=== PATIENT | male | born 1940 | race Hispanic/Latino ===

== ENCOUNTER 2017-08-01 12:12 | Observation (INO) | payer MEDICARE, OTHER ==
[2017-08-01] MEDS ORDERED: Sodium Chloride 0.9% 1,000 ML IV STA (12:31)
--- NOTE | 2017-08-01 12:43 | ED PDOC ---
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 Pt was sitting in chair, felt lightheaded and passed out X 45 seconds, no seizure- like activity, no incontinence. Pt slowly returned to baseline mental status. Denies CP, SOB, palpitations, paresthesias, weakness, visual changes, CROFT. Denies similar sxs in past. Pt states he had 4 drinks (hard liquor) last night. Past Medical History Reviewed: Nursing Documentation, Vital Signs Vital Signs: Last Vital Signs Temp 98.6 F 08/01/17 12:14 Pulse 106 H 08/01/17 12:14 Resp 18 08/01/17 12:14 BP 150/97 H 08/01/17 12:14 Pulse Ox 96 08/01/17 12:14 - Medical History PMH: Atrial Fibrillation, GERD - Surgical History Surgical History: Appendectomy, Cholecystectomy - Family History Family History: States: Unknown Family Hx - Living Arrangements Living Arrangements: With Family - Social History Current smoker - smoking cessation education provided: Yes Alcohol: Social - Home Medications Home Medications: Ambulatory Orders Medication Instructions Recorded Pantoprazole Sodium [Protonix] 20 mg PO DAILY 08/01/17 - Allergies Allergies/Adverse Reactions: Allergies Allergy/AdvReac Type Severity Reaction Status Date / Time Penicillins Allergy RASH Verified 08/01/17 12:24 Review of Systems Constitutional: Negative for: Fever, Chills Eyes: Negative for: Vision Change Cardiovascular: Negative for: Chest Pain, Palpitations Respiratory: Negative for: Cough, Shortness of Breath Gastrointestinal: Negative for: Nausea, Vomiting, Abdominal Pain, Diarrhea Musculoskeletal: Negative for: Back Pain Skin: Negative for: Rash, Lesions Neurological: Positive for: Dizziness (Lightheadedness). Negative for: Weakness , Numbness, Incoordination, Confusion, Seizures, Altered Mental Status, Headache Physical Exam - Reviewed Nursing Documentation Reviewed: Yes Vital Signs Reviewed: Yes - Physical Exam Appears: Positive for: Well, No Acute Distress Head Exam: Positive for: ATRAUMATIC, NORMAL INSPECTION Skin: Positive for: Normal Color, Warm, Dry Eye Exam: Positive for: Normal appearance, EOMI, PERRL Neck: Positive for: Normal Cardiovascular/Chest: Positive for: Irregularly Irregular Respiratory: Positive for: Normal Breath Sounds. Negative for: Rales, Rhonchi, Wheezing Gastrointestinal/Abdominal: Positive for: Normal Exam Back: Positive for: Normal Inspection Extremity: Positive for: Normal ROM. Negative for: Calf Tenderness, Swelling Neurologic/Psych: Positive for: Alert, advertising sales assistant II-XII, Oriented, Cerebellar Tests ( WNL). Negative for: Motor/Sensory Deficits, Aphasia, Facial Droop - Laboratory Results Result Diagrams: 08/01/17 13:03 08/01/17 13:03 - ECG O2 Sat by Pulse Oximetry: 96 Medical Decision Making Medical Decision Makin yo male with syncope. - labs - EKG - CXR - CT head - IVF Time: 13:45 CT Head Without Contrast FINDINGS: HEMORRHAGE: No acute parenchymal, subarachnoid or extra-axial hemorrhage. BRAIN: Mild diffuse/confluent chronic white matter ischemic changes seen extending peripherally into the deep white matter both cerebral hemispheres. Mild generalized volume loss. Vascular calcifications both carotid siphons and vertebral arteries. VENTRICLES: No obstructive hydrocephalus. CALVARIUM: No acute calvarial fractures. PARANASAL SINUSES: Mild to moderate the mucosal thickening within the ethmoid air complex extending superiorly into the inferior aspect frontal sinus. Minimal mucosal thickening within the sphenoid and maxillary sinuses. MASTOID AIR CELLS: Unremarkable as visualized. No inflammatory changes. OTHER FINDINGS: Orbits and contents appear grossly unremarkable. IMPRESSION: No acute intracranial hemorrhage. Mild chronic white matter ischemic changes. Mild generalized volume loss. Variable mucoperiosteal inflammatory changes within all the paranasal sinuses. Accession No. : [id number] Patient Name / ID : OREN Garcia [id number] Exam Date : 08/01/2017 14:47:50 ( Approved ) Study Comment : Sex / Age : M / 76Y Creator : Jenaro Naik MD Dictator : Jenaro Naik MD Chief Safety Officer : Manufacturing Tech : Jenaro Naik MD Approver2 : Report Date : 08/01/2017 15:25:50 My Comment : PROCEDURE: CT Chest with contrast (Pulmonary Angiogram) HISTORY: Syncope COMPARISON: None available. TECHNIQUE: Axial computed tomography images were obtained of the chest in the pulmonary arterial phase of enhancement. Coronal and sagittal reformatted images were created and reviewed. Intravenous contrast dose: 99 mL Visipaque 320 Radiation dose: Total exam DLP = 496 mGy-cm. This CT exam was performed using one or more of the following dose reduction techniques: Automated exposure control, adjustment of the mA and/or kV according to patient size, and/or use of iterative reconstruction technique. FINDINGS: PULMONARY ARTERIES: Unremarkable. No pulmonary embolism. AORTA: No acute findings. No thoracic aortic aneurysm. LUNGS: Diffuse centrilobular emphysema. No nodule, mass or pulmonary consolidation. PLEURAL SPACES: Unremarkable. No effusion or pneumothorax. HEART: Unremarkable. No cardiomegaly. No significant pericardial effusion. LYMPH NODES: Multiple prominent mediastinal and bilateral hilar lymph nodes that do not meet CT criteria for lymphadenopathy. BONES, CHEST WALL: Degenerative changes. No fracture or destructive lesion OTHER FINDINGS: Small hiatal hernia. Prior cholecystectomy. IMPRESSION: Unremarkable CT pulmonary angiogram. No pulmonary embolus. Multiple nonspecific prominent mediastinal and bilateral hilar lymph nodes that do not meet CT criteria for lymphadenopathy. Additional findings as above. Pt influenza +, symptoms started [address] in obs [facility] for syncope , influenza. 16:00 Pt admitted to Pharmacist that he has been noncompliant with Xarelto since this past summer. Disposition - Clinical Impression Clinical Impression: Syncope, Influenza - Patient ED Disposition Is Patient to be Admitted: Yes - Disposition Disposition Time: 15:49 Condition: STABLE Forms: [employer] (Albanian) - Pt Status Changed To: Hospital Disposition Of: Observation - POA Present On Arrival: None
[2017-08-01 13:11] LABS: BASO % 0.5 % (0.0-2.0); HEMOGLOBIN 15.7 g/dL (12.0-18.0); LYMPH # 1.1 K/uL (1.0-4.3); LYMPH % 22.2 % (20.0-40.0); MEAN CELL VOLUME 93.4 fl (80.0-94.0); MEAN CORPUSCULAR HEMOGLOBIN 31.4 pg (27.0-31.0); MEAN CORPUSCULAR HGB CONC 33.6 g/dL (33.0-37.0); MEAN PLATELET VOLUME 8.7 fl (7.2-11.7); MONO % 19.8 % (0.0-10.0); NEUT # 2.9 K/uL (1.8-7.0); NEUT % 57.5 % (50.0-75.0); NRBC % 0.1 % (0.0-0.0); RBC 5.01 Mil/uL (4.40-5.90); RED CELL DISTRIBUTION WIDTH 13.3 % (11.5-14.5)
[2017-08-01 13:21] LABS: INR 1.2 (0.9-1.2); PARTIAL THROMBOPLASTIN TIME 34.3 Seconds (25.6-37.1); PROTHROMBIN TIME 13.3 Seconds (9.8-13.1)
[2017-08-01 13:27] LABS: ALB/GLOB RATIO 1.2 (1.0-2.1); ALBUMIN 4.3 g/dL (3.5-5.0); CALCIUM 8.6 mg/dL (8.4-10.2); GFR AFRICAN-AMERICAN > 60; GFR NON-AFRICAN AMERICAN > 60
[2017-08-01 13:36] LABS: ALT/SGPT 60 U/L (21-72); AST/SGOT 58 U/L (17-59); BLOOD UREA NITROGEN 19 mg/dl (9-20)
[2017-08-01] MEDS ORDERED: Iodixanol 320 MG/ML 100 ML BOTTLE IV ONE (13:45)
[2017-08-01] MEDS ORDERED: Sodium Chloride 0.9% 50 ML IV ONE (13:45)
--- NOTE | 2017-08-01 13:47 | CT ---
PROCEDURE: CT HEAD WITHOUT CONTRAST. HISTORY: Syncope COMPARISON: No prior study available for comparison TECHNIQUE: Axial computed tomography images were obtained through the head/brain without intravenous contrast. Radiation dose: Total exam DLP = 891.07 mGy-cm. This CT exam was performed using one or more of the following dose reduction techniques: Automated exposure control, adjustment of the mA and/or kV according to patient size, and/or use of iterative reconstruction technique. FINDINGS: HEMORRHAGE: No acute parenchymal, subarachnoid or extra-axial hemorrhage. BRAIN: Mild diffuse/confluent chronic white matter ischemic changes seen extending peripherally into the deep white matter both cerebral hemispheres. Mild generalized volume loss. Vascular calcifications both carotid siphons and vertebral arteries. VENTRICLES: No obstructive hydrocephalus. CALVARIUM: No acute calvarial fractures. PARANASAL SINUSES: Mild to moderate the mucosal thickening within the ethmoid air complex extending superiorly into the inferior aspect frontal sinus. Minimal mucosal thickening within the sphenoid and maxillary sinuses. MASTOID AIR CELLS: Unremarkable as visualized. No inflammatory changes. OTHER FINDINGS: Orbits and contents appear grossly unremarkable. IMPRESSION: No acute intracranial hemorrhage. Mild chronic white matter ischemic changes. Mild generalized volume loss. Variable mucoperiosteal inflammatory changes within all the paranasal sinuses. .
[2017-08-01 14:31] LABS: URINE BACTERIA RARE (<OCC); URINE BILIRUBIN NEGATIVE (NEGATIVE); URINE BLOOD NEGATIVE (NEGATIVE); URINE CLARITY SLIGHTY-CLOUDY (Clear); URINE COLOR YELLOW (YELLOW); URINE GLUCOSE (UA) NEG (Normal); URINE LEUKOCYTE ESTERASE NEG Leu/uL (Negative); URINE NITRATE NEGATIVE (NEGATIVE); URINE PROTEIN NEGATIVE (NEGATIVE); URINE UROBILINOGEN 0.2-1.0 mg/dL (0.2-1.0)
--- NOTE | 2017-08-01 15:17 | RAD ---
HISTORY: Syncope COMPARISON: Chest radiograph dated 12/26/2009. FINDINGS: LUNGS: No active pulmonary disease. PLEURA: Stable elevation of the right hemidiaphragm. No significant pleural effusion identified, no pneumothorax apparent. CARDIOVASCULAR: Atherosclerotic aortic calcifications. Cardiomediastinal silhouette stably enlarged. OSSEOUS STRUCTURES: Unchanged. VISUALIZED UPPER ABDOMEN: Normal. OTHER FINDINGS: None. IMPRESSION: No active disease.
--- NOTE | 2017-08-01 15:27 | CT ---
PROCEDURE: CT Chest with contrast (Pulmonary Angiogram) HISTORY: Syncope COMPARISON: None available. TECHNIQUE: Axial computed tomography images were obtained of the chest in the pulmonary arterial phase of enhancement. Coronal and sagittal reformatted images were created and reviewed. Intravenous contrast dose: 99 mL Visipaque 320 Radiation dose: Total exam DLP = 496 mGy-cm. This CT exam was performed using one or more of the following dose reduction techniques: Automated exposure control, adjustment of the mA and/or kV according to patient size, and/or use of iterative reconstruction technique. FINDINGS: PULMONARY ARTERIES: Unremarkable. No pulmonary embolism. AORTA: No acute findings. No thoracic aortic aneurysm. LUNGS: Diffuse centrilobular emphysema. No nodule, mass or pulmonary consolidation. PLEURAL SPACES: Unremarkable. No effusion or pneumothorax. HEART: Unremarkable. No cardiomegaly. No significant pericardial effusion. LYMPH NODES: Multiple prominent mediastinal and bilateral hilar lymph nodes that do not meet CT criteria for lymphadenopathy. BONES, CHEST WALL: Degenerative changes. No fracture or destructive lesion OTHER FINDINGS: Small hiatal hernia. Prior cholecystectomy. IMPRESSION: Unremarkable CT pulmonary angiogram. No pulmonary embolus. Multiple nonspecific prominent mediastinal and bilateral hilar lymph nodes that do not meet CT criteria for lymphadenopathy. Additional findings as above.
[2017-08-01] MEDS: Sodium Chloride 0.9% 1,000 ML IV SCH (21:39)
[2017-08-02] MEDS: Sodium Chloride 0.9% 1,000 ML IV SCH (03:00)
[2017-08-02 07:29] LABS: BASO % 0.5 % (0.0-2.0); EOS % 0.1 % (0.0-4.0); HEMOGLOBIN 14.7 g/dL (12.0-18.0); LYMPH # 0.8 K/uL (1.0-4.3); LYMPH % 22.4 % (20.0-40.0); MEAN CELL VOLUME 93.8 fl (80.0-94.0); MEAN CORPUSCULAR HEMOGLOBIN 31.7 pg (27.0-31.0); MEAN CORPUSCULAR HGB CONC 33.8 g/dL (33.0-37.0); MEAN PLATELET VOLUME 8.3 fl (7.2-11.7); MONO # 0.7 K/uL (0.0-0.8); MONO % 20.1 % (0.0-10.0); NEUT % 56.9 % (50.0-75.0); NRBC % 0.5 % (0.0-0.0); PLATELET COUNT 98 K/uL (130-400); RBC 4.63 Mil/uL (4.40-5.90); WHITE BLOOD COUNT 3.5 K/uL (4.8-10.8)
[2017-08-02 07:45] LABS: ALB/GLOB RATIO 1.1 (1.0-2.1); ALBUMIN 3.5 g/dL (3.5-5.0); ALT/SGPT 48 U/L (21-72); AST/SGOT 39 U/L (17-59); BLOOD UREA NITROGEN 14 mg/dl (9-20); CALCIUM 8.1 mg/dL (8.4-10.2); GFR AFRICAN-AMERICAN > 60; GFR NON-AFRICAN AMERICAN > 60
[2017-08-02] MEDS ORDERED: Pneumococcal 23-Valent Vaccine IM ONE (09:00)
[2017-08-02] MEDS ORDERED: Influenza Vaccine 18yr & older 0.5 ML/45 MCG SYR IM ONE (09:00)
[2017-08-02] MEDS ORDERED: Pantoprazole 20 mg EC Tab PO SCH (09:00)
--- NOTE | 2017-08-02 09:36 | CP.PCM.HP ---
History of Present Illness - History of Present Illness History of Present Illness: pt admitted for flu b and near syncope. pt states had a couple of drinks the night before coming to the hospital. was on couch and felt lightheaded and "everythign was black for 30 seconds". no sz activity noted. pt did not fall to floor. pt has h/o afib not compliant on xarelto. afib on monitor. no complaints a tpresent. no f/c, n/v/d. 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 pt also w/ r hand tremor. states has been present for a long time Present on Admission - Present on Admission Any Indicators Present on Admission: No Review of Systems - Cardiovascular Cardiovascular: As Per HPI, Irregular Heart Rhythm - Neurological Neurological: As Per HPI, Syncope, Tremor Past Patient History - Past Medical History & Family History Past Medical History?: Yes - Past Social History Smoking Status: use cigars - CARDIAC Hx Cardiac Disorders: Yes Hx Atrial Fibrillation: Yes - PULMONARY Hx Respiratory Disorders: No - NEUROLOGICAL Hx Neurological Disorder: No - HEENT Hx HEENT Problems: No - RENAL Hx Chronic Kidney Disease: No - ENDOCRINE/METABOLIC Hx Endocrine Disorders: No - HEMATOLOGICAL/ONCOLOGICAL Hx Blood Disorders: No - INTEGUMENTARY Hx Dermatological Problems: No - MUSCULOSKELETAL/RHEUMATOLOGICAL Hx Musculoskeletal Disorders: No Hx Falls: No - GASTROINTESTINAL Hx Gastrointestinal Disorders: Yes Hx Gastroesophageal Reflux: Yes - GENITOURINARY/GYNECOLOGICAL Hx Genitourinary Disorders: No - PSYCHIATRIC Hx Psychophysiologic Disorder: No Hx Substance Use: No - SURGICAL HISTORY Hx Surgeries: Yes Hx Appendectomy: Yes Hx Cholecystectomy: Yes - ANESTHESIA Hx Anesthesia: Yes Hx Anesthesia Reactions: No Meds Allergies/Adverse Reactions: Allergies Allergy/AdvReac Type Severity Reaction Status Date / Time Penicillins Allergy RASH Verified 08/01/17 12:24 Physical Exam - Constitutional Appears: Well, Non-toxic, No Acute Distress - Head Exam Head Exam: ATRAUMATIC, NORMAL INSPECTION, NORMOCEPHALIC - Eye Exam Eye Exam: EOMI, Normal appearance, PERRL Pupil Exam: NORMAL ACCOMODATION, PERRL - ENT Exam ENT Exam: Mucous Membranes Moist, Normal Exam - Neck Exam Neck exam: Positive for: Normal Inspection - Respiratory Exam Respiratory Exam: Clear to Auscultation Bilateral, NORMAL BREATHING PATTERN - Cardiovascular Exam Cardiovascular Exam: Irregular Rhythm, +S1, +S2 - GI/Abdominal Exam GI & Abdominal Exam: Normal Bowel Sounds, Soft. absent: Tenderness - Extremities Exam Extremities exam: Positive for: full ROM, normal capillary refill, normal inspection, pedal pulses present - Back Exam Back exam: NORMAL INSPECTION - Neurological Exam Neurological exam: Alert, CN II-XII Intact, Normal Gait, Oriented x3, Reflexes Normal - Psychiatric Exam Psychiatric exam: Normal Affect, Normal Mood - Skin Skin Exam: Dry, Intact, Normal Color, Warm Results - Vital Signs Recent Vital Signs: Last Vital Signs Temp 98.6 F 08/02/17 08:21 Pulse 79 08/02/17 08:21 Resp 18 08/02/17 08:21 BP 121/77 08/02/17 08:21 Pulse Ox 96 08/02/17 08:21 - Labs Result Diagrams: 08/02/17 06:00 08/02/17 06:00 Labs: Laboratory Results - last 24 hr 08/01/17 08/01/17 08/01/17 13:03 13:03 13:03 WBC 5.0 D RBC 5.01 Hgb 15.7 Hct 46.8 MCV 93.4 MCH 31.4 H MCHC 33.6 RDW 13.3 Plt Count 120 L D MPV 8.7 Neut % (Auto) 57.5 Lymph % (Auto) 22.2 [place] % (Auto) 19.8 H Eos % (Auto) 0.0 Baso % (Auto) 0.5 Neut # 2.9 Lymph # 1.1 [place] # 1.0 H Eos # 0.0 Baso # 0.0 PT 13.3 H INR 1.2 APTT 34.3 D-Dimer, Quantitative 234 H Sodium 133 Potassium 4.6 Chloride 96 L Carbon Dioxide 25 Anion Gap 17 BUN 19 Creatinine 0.9 Est GFR ( Amer) > 60 Est GFR (Non-Af Amer) > 60 POC Glucose (mg/dL) Random Glucose 106 Calcium 8.6 Total Bilirubin 1.6 H AST 58 ALT 60 Alkaline Phosphatase 49 Troponin I 0.0180 Total Protein 7.9 Albumin 4.3 Globulin 3.6 Albumin/Globulin Ratio 1.2 Urine Color Urine Clarity Urine pH Ur Specific [place] Urine Protein Urine Glucose (UA) Urine Ketones Urine Blood Urine Nitrate Urine Bilirubin Urine Urobilinogen Ur Leukocyte Esterase Urine RBC (Auto) Urine Microscopic WBC Urine Bacteria Alcohol, Quantitative < 10 Influenza Typ A,B (EIA) 08/01/17 08/01/17 08/01/17 13:10 13:20 14:00 WBC RBC Hgb Hct MCV MCH MCHC RDW Plt Count MPV Neut % (Auto) Lymph % (Auto) [place] % (Auto) Eos % (Auto) Baso % (Auto) Neut # Lymph # [place] # Eos # Baso # PT INR APTT D-Dimer, Quantitative Sodium Potassium Chloride Carbon Dioxide Anion Gap BUN Creatinine Est GFR ( Amer) Est GFR (Non-Af Amer) POC Glucose (mg/dL) 99 Random Glucose Calcium Total Bilirubin AST ALT Alkaline Phosphatase Troponin I Total Protein Albumin Globulin Albumin/Globulin Ratio Urine Color Yellow Urine Clarity Slighty-cloudy Urine pH 5.0 Ur Specific [place] 1.024 Urine Protein Negative Urine Glucose (UA) Neg Urine Ketones Negative Urine Blood Negative Urine Nitrate Negative Urine Bilirubin Negative Urine Urobilinogen 0.2-1.0 Ur Leukocyte Esterase Neg Urine RBC (Auto) 3 Urine Microscopic WBC 1 Urine Bacteria Rare Alcohol, Quantitative Influenza Typ A,B (EIA) Pos for influenza b H 08/02/17 08/02/17 06:00 06:00 WBC 3.5 L RBC 4.63 Hgb 14.7 Hct 43.4 MCV 93.8 MCH 31.7 H MCHC 33.8 RDW 13.0 Plt Count 98 L D MPV 8.3 Neut % (Auto) 56.9 Lymph % (Auto) 22.4 [place] % (Auto) 20.1 H Eos % (Auto) 0.1 Baso % (Auto) 0.5 Neut # 2.0 Lymph # 0.8 L [place] # 0.7 Eos # 0.0 Baso # 0.0 PT INR APTT D-Dimer, Quantitative Sodium 136 Potassium 4.1 Chloride 97 L Carbon Dioxide 28 Anion Gap 15 BUN 14 Creatinine 0.8 Est GFR ( Amer) > 60 Est GFR (Non-Af Amer) > 60 POC Glucose (mg/dL) Random Glucose 117 H Calcium 8.1 L Total Bilirubin 1.3 AST 39 ALT 48 Alkaline Phosphatase 46 Troponin I Total Protein 6.7 Albumin 3.5 Globulin 3.2 Albumin/Globulin Ratio 1.1 Urine Color Urine Clarity Urine pH Ur Specific [place] Urine Protein Urine Glucose (UA) Urine Ketones Urine Blood Urine Nitrate Urine Bilirubin Urine Urobilinogen Ur Leukocyte Esterase Urine RBC (Auto) Urine Microscopic WBC Urine Bacteria Alcohol, Quantitative Influenza Typ A,B (EIA) Assessment & Plan (1) DVT prophylaxis Assessment and Plan: scd and ae hose ambulation lovenox if admitted over 24h Status: Acute (2) Influenza Assessment and Plan: out of window for tamiflu ivf po as [place] fever control symptom support Status: Acute (3) Syncope Assessment and Plan: likely r/t dehydration from flu/etoh cardio/neuro and pt is noncompliant w/ xarelto for afib. per dr matias if pt is dc today can see him mon in office, if in hospital tomorrow will see as inpt. pt aaox4 at present Status: Acute (4) Tremor Assessment and Plan: neuro. pt has h/o ofsame Status: Acute (5) Afib Assessment and Plan: asa for now, resume xarelto as per cardio Status: Acute Decision To Admit - Pt Status Changed To: Hospital Disposition Of: Observation - . Bed Request Type: Telemetry Admitting Physician: Dennis Prado
[2017-08-02 12:58] LABS: BANDS 2 % (0-2); LYMPHOCYTE 21 % (20-50); MONOCYTE 14 % (0-10); NEUTROPHIL 61 % (42-75); REACTIVE LYMPHOCYTES 2 % (0-0); TOTAL CELLS COUNTED 100
[2017-08-02 12:59] LABS: PLATELET ESTIMATE DECREASED (NORMAL)
--- NOTE | 2017-08-02 13:02 | CON ---
DATE: 08/02/2017 NEUROLOGY CONSULTATION CHIEF COMPLAINT: Syncope. HISTORY OF PRESENT ILLNESS: This is a 76-year-old man with past medical history of atrial fibrillation, was on Xarelto, has been off of it for the past few months; GERD; history of appendectomy and cholecystectomy, who presented with a syncopal episode. The patient was sitting in a chair, felt lightheaded and passed out for 45 seconds. No seizure-like activity. No bowel or bladder incontinence. He said that he has been having flu-like symptoms the whole week and had a very poor sleep and went out the night before and had a few hard liquor drinks and felt dehydrated and lightheaded in the morning, then when he went to in his chair, he felt lightheaded and passed out. Currently, no seizure-like activities. His CAT scan of the head showed no acute intracranial abnormality. Neuro exam is nonfocal. He is doing well, moving all extremities equally. PAST MEDICAL HISTORY: AFib, GERD, appendectomy, cholecystectomy. FAMILY HISTORY: Noncontributory. SOCIAL HISTORY: No illicit drug use, smoking or EtOH abuse at this time. REVIEW OF SYSTEMS: A 14-point review of systems negative except in the HPI. ALLERGIES: ALLERGIC TO PENICILLIN. MEDICATIONS: Reviewed by nurse reconciliation sheet. PHYSICAL EXAMINATION: VITAL SIGNS: Temperature 98.6, pulse rate of 79, blood pressure 121/77, respiratory rate of 18, oxygen saturation 96% by room air. GENERAL: The patient is sitting up in bed, in no acute distress. HEENT: Atraumatic, normocephalic. PERRLA. Extraocular muscles intact. NECK: Supple. No JVD, no adenopathy noted. LUNGS: Clear to auscultation. No adventitious sounds. HEART: S1, S2. Normal rate and rhythm. No murmurs, rubs or gallops. ABDOMEN: Soft, nontender and nondistended. Bowel sounds are present. EXTREMITIES: No clubbing. No cyanosis. Peripheral pulses 2+ felt bilaterally. NEUROLOGIC: The patient is alert and oriented to person, place, month and year. Speech is fluent without any errors. Cranial nerves II through XII intact. Motor exam: Moves all extremities equally. Toes are downgoing bilaterally. Sensory: Light touch, pinprick, proprioception and vibration are intact. DTRs are 2+ throughout. Coordination: [id number] intact. Gait is deferred for now. LABORATORY DATA: Sodium 136, potassium 4.1, chloride 97, carbon dioxide of 15, BUN of 14, creatinine 0.8, random glucose 117. ASSESSMENT AND PLAN: This is a 76-year-old man with history of atrial fibrillation, was on Xarelto and hypertension, who had a syncopal event. The syncopal event seems most likely a vasovagal component superimposed on influenza, which is flu. At this time, recommend, 1. Adequate hydration throughout the day. 2. Avoid sudden movements.. 3. Needs to be on his anticoagulation like Xarelto or Eliquis for his atrial fibrillation. 4. Carotid Doppler and can be stable for discharge. Once again, thank you for this consultation. Ion Guidry MD
[2017-08-02 15:46] VITALS: RESP 20
--- NOTE | 2017-08-02 17:42 | US ---
PROCEDURE: Duplex ultrasound of the carotid and vertebral arteries. HISTORY: syncope COMPARISON: None available. TECHNIQUE: Grayscale and duplex Doppler evaluation of the cervical carotid and vertebral arteries were performed. The common carotid, carotid bifurcations and cervical ICA and proximal ECA were evaluated. The vertebral arteries were evaluated for gross patency and direction. FINDINGS: RIGHT CAROTID ARTERIES: Maximal right ICA velocity = 68.0 cm/S Maximal right CCA velocity = 77.9 cm/S ICA/CCA Ratio: 0.9 No significant right-sided atherosclerotic plaque changes are identified however there arm mild irregular intimal thickening changes seen within the right carotid bifurcation extending slightly into the proximal margin of the right internal carotid artery LEFT CAROTID ARTERIES: Maximal left ICA velocity = 72.5 cm/S Maximal left CCA velocity equals 73.5 cm/S ICA/CCA Ratio: 1.0 Note made of a relatively small to medium-sized elliptical shaped partially calcified plaque within the proximal left internal carotid artery and a slightly smaller plaque in the left carotid bifurcation. . Mild irregular intimal thickening left common carotid artery VERTEBRAL ARTERIES: Right Vertebral Artery: Patent. Antegrade flow. Left Vertebral Artery: Patent. Antegrade flow. OTHER FINDINGS: None. IMPRESSION: There are atherosclerotic plaque changes seen within the left common carotid artery and left proximal internal carotid artery with no evidence of hemodynamically significant stenosis.
[2017-08-02 19:24] VITALS: BP 110/66; PULSE 77; TEMP 98.7; O2SAT 92
== END 2017-08-02 20:15 | disposition home or self-care (01) ==
LOC: H.ER 12:12 → H.ERHOLD 15:49 → H.TEL 18:19
PROVIDERS: ADMIT Family Medicine; ATTEND Family Medicine
DX: E86.0 Dehydration (principal); J10.1 Influenza due to other identified influenza virus with other respiratory manifestations; R55 Syncope and collapse; I10 Essential (primary) hypertension; I48.91 Unspecified atrial fibrillation; K21.9 Gastro-esophageal reflux disease without esophagitis; F17.200 Nicotine dependence, unspecified, uncomplicated; Z91.19 Patient's noncompliance with other medical treatment and regimen; Z79.01 Long term (current) use of anticoagulants; Z88.0 Allergy status to penicillin
CPT/HCPCS: 36415; 70450; 71045; 71275; 80053; 81003; 82948; 84484; 85025; 85378; 85610; 85730; 87804; 93880; 99285; G0378; G0480; J7040; Q9967

== ENCOUNTER 2018-10-07 08:24 | Inpatient (IN) | payer MEDICARE, OTHER ==
[2018-10-07 08:27] VITALS: BMI 26.6
[2018-10-07] MEDS ORDERED: Sodium Chloride 0.9% 1,000 ML IV STA (09:23)
--- NOTE | 2018-10-07 09:30 | ED PDOC ---
HPI: Abdomen Time Seen by Provider: 10/07/18 09:17 Chief Complaint (Nursing): GI Problem Chief Complaint (Provider): GI Problem History Per: Patient History/Exam Limitations: no limitations Onset/Duration Of Symptoms: Days Current Symptoms Are (Timing): Still Present Associated Symptoms: Nausea, Vomiting, Diarrhea Additional Complaint(s): 77 year old male with a past medical history of atrial fibrillation who is presenting to the ED for evaluation of nausea, vomiting, and diarrhea onset 2 days ago at night. Patient states that he thinks he got food poisoning and reports that there was bright red blood in diarrhea but states that episodes of vomiting were non-bloody. He denies any abdominal pain or fevers and admits that he is on blood thinner and is taking xarelto for Afib. Patient also denies any chest pain or shortness of breath. PMD: Yanick Owen Past Medical History Reviewed: Historical Data, Nursing Documentation, Vital Signs Vital Signs: Last Vital Signs Temp 97.1 F L 10/07/18 08:26 Pulse 110 H 10/07/18 08:26 Resp 16 10/07/18 08:26 BP 121/70 10/07/18 08:26 Pulse Ox 96 10/07/18 08:26 - Medical History PMH: Atrial Fibrillation, GERD, Hiatal Hernia Denies: Chronic Kidney Disease - Surgical History Surgical History: Appendectomy, Cholecystectomy - Family History Family History: States: Unknown Family Hx - Social History Current smoker - smoking cessation education provided: Yes Alcohol: Social Drugs: Denies - Home Medications Home Medications: Ambulatory Orders Medication Instructions Recorded Pantoprazole Sodium [Protonix] 20 mg PO HS 08/01/17 Rivaroxaban [Xarelto] 20 mg PO HS 08/01/17 - Allergies Allergies/Adverse Reactions: Allergies Allergy/AdvReac Type Severity Reaction Status Date / Time Penicillins Allergy RASH Verified 08/01/17 12:24 Review of Systems ROS Statement: Except As Marked, All Systems Reviewed And Found Negative Constitutional: Negative for: Fever Cardiovascular: Negative for: Chest Pain Respiratory: Negative for: Shortness of Breath Gastrointestinal: Positive for: Nausea, Vomiting, Diarrhea. Negative for: Abdominal Pain Physical Exam - Reviewed Nursing Documentation Reviewed: Yes Vital Signs Reviewed: Yes - Physical Exam Appears: Positive for: Non-toxic, No Acute Distress Head Exam: Positive for: ATRAUMATIC, NORMAL INSPECTION, NORMOCEPHALIC Skin: Positive for: Normal Color, Warm, DRY Eye Exam: Positive for: EOMI, Normal appearance, PERRL Neck: Positive for: Normal, Painless ROM Cardiovascular/Chest: Positive for: Regular Rate, Rhythm. Negative for: Murmur Respiratory: Positive for: Normal Breath Sounds. Negative for: Respiratory Distress Gastrointestinal/Abdominal: Positive for: Normal Exam, Soft. Negative for: Tenderness, Mass, Guarding, Rebound Back: Positive for: Normal Inspection. Negative for: L CVA Tenderness, R CVA Tenderness Extremity: Positive for: Normal ROM. Negative for: Deformity, Swelling Neurological/Psych: Positive for: Awake, Alert, Normal Tone, Oriented. Negative for: Motor/Sensory Deficits - Laboratory Results Result Diagrams: 10/07/18 09:05 10/07/18 09:05 - ECG O2 Sat by Pulse Oximetry: 96 (RA) Pulse Ox Interpretation: Normal Medical Decision Making Medical Decision Making: Time: 9:22 Plan: --ABO/RH Type --Blood Type and Screen --CT Abd/Pelvis --EKG --CMP --Lipase --ED Urine Dipstick --CBC --Coags --CXR --IV Fluids --Pepcid 20 mg IVP --Zofran 4 mg IV --Urinalysis Accession No. : [id number] Patient Name / ID : OREN Garcia [id number] Exam Date : 10/07/2018 11:53:33 ( Approved ) Study Comment : Sex / Age : M / 77Y Creator : Jack Donahue MD Dictator : Jack Donahue MD Handyperson : [employer] Room Supervisor : Jack Donahue MD Approver2 : Report Date : 10/07/2018 12:30:13 My Comment : Date of service: 10/07/2018 PROCEDURE: CT Abdomen and Pelvis without intravenous contrast HISTORY: Vomiting, bloody diarrhea COMPARISON: 05/23/2015. CT abdomen and pelvis. TECHNIQUE: Unenhanced. Neither IV nor oral contrast administered Radiation dose: Total exam DLP = 689.79 mGy-cm. This CT exam was performed using one or more of the following dose reduction techniques: Automated exposure control, adjustment of the mA and/or kV according to patient size, and/or use of iterative reconstruction technique. FINDINGS: LOWER THORAX: Right middle lobe infiltrate likely pneumonia. LIVER: Unremarkable. No gross lesion or ductal dilatation. GALLBLADDER AND BILE DUCTS: Status post cholecystectomy. No abnormality is seen in the gallbladder fossa. PANCREAS: Unremarkable. No gross lesion or ductal dilatation. SPLEEN: Unremarkable. ADRENALS: Unremarkable. No mass. KIDNEYS AND URETERS: Unremarkable. No hydronephrosis. No solid mass. Redemonstration of dominant simple cyst left kidney. VASCULATURE: Unremarkable. No aortic aneurysm. Atherosclerotic calcification and mural plaque present. Findings are seen throughout the aorta which is non aneurysmal. Extension into the iliac vessels noted. BOWEL: Diverticulosis without an acute inflammatory component or other associated pathologic process. APPENDIX: The appendix is not visualized. No right lower quadrant/pelvic inflammatory changes. PERITONEUM: Unremarkable. No free fluid. No free air. LYMPH NODES: Unremarkable. No enlarged lymph nodes. BLADDER: Unremarkable. REPRODUCTIVE: Unremarkable. BONES: No acute fracture. OTHER FINDINGS: Right inguinal hernia, a progressive finding compared to the prior study now containing the cecum and adjacent ileum. No evidence of incarceration or mechanical obstruction. IMPRESSION: Progression of right inguinal hernia now containing bowel. No evidence of obstruction or incarceration. Right middle lobe infiltrate likely acute pneumonia. Scribe Attestation: Documented by Poornima Ndiaye, acting as a scribe for Laura Stringer MD. Provider Scribe Attestation: All medical record entries made by the Scribe were at my direction and personally dictated by me. I have reviewed the chart and agree that the record accurately reflects my personal performance of the history, physical exam, [facility] decision making, and the department course for this patient. I have also personally directed, reviewed, and agree with the discharge instructions and disposition. Disposition - Clinical Impression Clinical Impression: LGI bleed, Gastroenteritis, Pneumonia - Patient ED Disposition Is Patient to be Admitted: Yes - Disposition Disposition Time: 12:48 Condition: STABLE - Pt Status Changed To: Hospital Disposition Of: Inpatient - Admit Certification Admit to Inpatient:: After my assessment, the patient will require hospitalization for at least two midnights. This is because of the severity of symptoms shown, intensity of services needed, and/or the medical risk in this patient being treated as an outpatient. - POA Present On Arrival: None
--- NOTE | 2018-10-07 09:51 | RAD ---
Date of service: 10/07/2018 HISTORY: Vomiting/diarrhea COMPARISON: 08/01/2017 TECHNIQUE: 1 view obtained. FINDINGS: LUNGS: Lateral and basal right bronchovascular markings probably top-normal. Concomitant summation of soft tissues is favored. No dense consolidation seen. PLEURA: No significant pleural effusion identified, no pneumothorax apparent. CARDIOVASCULAR: There is presence of aortic atherosclerotic calcification on x-ray. Heart size top normal. No significant appearing pulmonary venous congestion. OSSEOUS STRUCTURES: No significant abnormalities. VISUALIZED UPPER ABDOMEN: Normal. OTHER FINDINGS: None. IMPRESSION: No interval dense consolidation noted. Probable summation of soft tissues at the right lung base. If clinically suspect an infiltrate, consider follow-up chest x-ray PA and lateral when patient can tolerate.
[2018-10-07 10:03] LABS: BASO % 0.2 % (0.0-2.0); HEMOGLOBIN 15.3 g/dL (12.0-18.0); LYMPH # 1.1 K/uL (1.0-4.3); LYMPH % 5.2 % (20.0-40.0); MEAN CORPUSCULAR HEMOGLOBIN 32.2 pg (27.0-31.0); MEAN CORPUSCULAR HGB CONC 33.5 g/dL (33.0-37.0); MEAN PLATELET VOLUME 8.4 fl (7.2-11.7); MONO # 1.5 K/uL (0.0-0.8); MONO % 7.1 % (0.0-10.0); NEUT # 17.9 K/uL (1.8-7.0); NEUT % 87.5 % (50.0-75.0); NRBC % 0.1 % (0.0-0.0); PLATELET COUNT 233 K/uL (130-400); RBC 4.76 Mil/uL (4.40-5.90); RED CELL DISTRIBUTION WIDTH 13.6 % (11.5-14.5); WHITE BLOOD COUNT 20.5 K/uL (4.8-10.8)
[2018-10-07 10:08] LABS: INR 2.3; PROTHROMBIN TIME 26.7 Seconds (9.8-13.1)
[2018-10-07 10:11] LABS: PARTIAL THROMBOPLASTIN TIME 46.1 Seconds (25.6-37.1)
[2018-10-07 10:12] LABS: ALB/GLOB RATIO 1.2 (1.0-2.1); ALBUMIN 4.5 g/dL (3.5-5.0); CALCIUM 9.3 mg/dL (8.4-10.2)
--- NOTE | 2018-10-07 10:50 | CARD ---
APPROVED REPORT Date of service: 10/07/2018 EKG Measurement Heart [id number] <Conclusion> Atrial fibrillation Anteroseptal infarct, age undetermined ST & T wave abnormality, consider inferolateral ischemia Abnormal ECG
--- NOTE | 2018-10-07 12:33 | CT ---
Date of service: 10/07/2018 PROCEDURE: CT Abdomen and Pelvis without intravenous contrast HISTORY: Vomiting, bloody diarrhea COMPARISON: 05/23/2015. CT abdomen and pelvis. TECHNIQUE: Unenhanced. Neither IV nor oral contrast administered Radiation dose: Total exam DLP = 689.79 mGy-cm. This CT exam was performed using one or more of the following dose reduction techniques: Automated exposure control, adjustment of the mA and/or kV according to patient size, and/or use of iterative reconstruction technique. FINDINGS: LOWER THORAX: Right middle lobe infiltrate likely pneumonia. LIVER: Unremarkable. No gross lesion or ductal dilatation. GALLBLADDER AND BILE DUCTS: Status post cholecystectomy. No abnormality is seen in the gallbladder fossa. PANCREAS: Unremarkable. No gross lesion or ductal dilatation. SPLEEN: Unremarkable. ADRENALS: Unremarkable. No mass. KIDNEYS AND URETERS: Unremarkable. No hydronephrosis. No solid mass. Redemonstration of dominant simple cyst left kidney. VASCULATURE: Unremarkable. No aortic aneurysm. Atherosclerotic calcification and mural plaque present. Findings are seen throughout the aorta which is non aneurysmal. Extension into the iliac vessels noted. BOWEL: Diverticulosis without an acute inflammatory component or other associated pathologic process. APPENDIX: The appendix is not visualized. No right lower quadrant/pelvic inflammatory changes. PERITONEUM: Unremarkable. No free fluid. No free air. LYMPH NODES: Unremarkable. No enlarged lymph nodes. BLADDER: Unremarkable. REPRODUCTIVE: Unremarkable. BONES: No acute fracture. OTHER FINDINGS: Right inguinal hernia, a progressive finding compared to the prior study now containing the cecum and adjacent ileum. No evidence of incarceration or mechanical obstruction. IMPRESSION: Progression of right inguinal hernia now containing bowel. No evidence of obstruction or incarceration. Right middle lobe infiltrate likely acute pneumonia.
[2018-10-07] MEDS ORDERED: levoFLOXacin 750 mg in D5W 150 ML BAG IVPB STA (12:46)
[2018-10-07] MEDS ORDERED: levoFLOXacin 750 mg in D5W 750 MG/150 ML BAG IVPB ONE (13:17)
[2018-10-07 13:28] LABS: BANDS 2 % (0-2); GIANT PLATELETS PRESENT; LARGE PLATELETS PRESENT; LYMPHOCYTE 5 % (20-50); MONOCYTE 5 % (0-10); NEUTROPHIL 86 % (42-75); PLATELET ESTIMATE NORMAL (NORMAL); REACTIVE LYMPHOCYTES 2 % (0-0); TOTAL CELLS COUNTED 100
[2018-10-07 13:30] LABS: URINE BACTERIA RARE (<OCC); URINE BILIRUBIN NEGATIVE (NEGATIVE); URINE BLOOD SMALL (NEGATIVE); URINE CLARITY CLEAR (Clear); URINE COLOR YELLOW (YELLOW); URINE GLUCOSE (UA) NEG (NEGATIVE); URINE LEUKOCYTE ESTERASE NEG Leu/uL (Negative); URINE PROTEIN NEGATIVE (NEGATIVE); URINE UROBILINOGEN 0.2-1.0 mg/dL (0.2-1.0)
[2018-10-07 13:53] LABS: VENOUS BLOOD GAS BASE EXCESS -2.3 mmol/L (0.0-2.0); VENOUS BLOOD GAS PCO2 38 mmHg (40-60); VENOUS BLOOD GAS PO2 28 mm/Hg (30-55); VENOUS BLOOD PH 7.38 (7.32-7.43)
[2018-10-07] MEDS ORDERED: Potassium Chloride 20 mEq ER Tab PO ONE (16:25)
[2018-10-07] MEDS: Sodium Chloride 0.9% 1,000 ML IV SCH (17:37)
[2018-10-07] MEDS: Pantoprazole 20 mg EC Tab PO SCH (22:18)
[2018-10-08] MEDS: Sodium Chloride 0.9% 1,000 ML IV SCH (06:53)
[2018-10-08 07:16] LABS: BASO % 0.3 % (0.0-2.0); HEMOGLOBIN 13.8 g/dL (12.0-18.0); LYMPH # 1.7 K/uL (1.0-4.3); LYMPH % 11.9 % (20.0-40.0); MEAN CORPUSCULAR HEMOGLOBIN 32.7 pg (27.0-31.0); MEAN CORPUSCULAR HGB CONC 34.1 g/dL (33.0-37.0); MEAN PLATELET VOLUME 8.4 fl (7.2-11.7); MONO # 1.3 K/uL (0.0-0.8); MONO % 8.9 % (0.0-10.0); NEUT # 11.6 K/uL (1.8-7.0); NEUT % 78.9 % (50.0-75.0); RBC 4.22 Mil/uL (4.40-5.90); RED CELL DISTRIBUTION WIDTH 13.7 % (11.5-14.5); WHITE BLOOD COUNT 14.7 K/uL (4.8-10.8)
[2018-10-08 07:28] LABS: ALB/GLOB RATIO 1.3 (1.0-2.1); ALBUMIN 3.8 g/dL (3.5-5.0); ALT/SGPT 34 U/L (21-72); AST/SGOT 33 U/L (17-59); BLOOD UREA NITROGEN 31 mg/dl (9-20); CALCIUM 8.7 mg/dL (8.4-10.2); GFR NON-AFRICAN AMERICAN > 60
[2018-10-08] MEDS: levoFLOXacin 500 mg in D5W 500 MG/100 ML BAG IVPB SCH (09:36)
--- NOTE | 2018-10-08 09:44 | CP.PCM.HP ---
History of Present Illness - History of Present Illness History of Present Illness: pt presented to er for cough, congestion, blood in stool. no f/c, n/v/d at present. bw noted and wbc trending down and bn/ cr normalized. pt states feels better no further complains of blood in stool. all bw and imaging reviewed. case d/c w/ gidr sotiriadis Present on Admission - Present on Admission Any Indicators Present on Admission: No Review of Systems - Respiratory Respiratory: As Per HPI, Cough, Chest Congestion - Gastrointestinal Gastrointestinal: As Per HPI, Hematochezia Past Patient History - Infectious Disease Hx of Infectious Diseases: None - Past Medical History & Family History Past Medical History?: Yes - Past Social History Smoking Status: Current Some Days Smoker - CARDIAC Hx Cardiac Disorders: Yes - PULMONARY Hx Respiratory Disorders: Yes - NEUROLOGICAL Hx Neurological Disorder: No - HEENT Hx HEENT Problems: No - RENAL Hx Chronic Kidney Disease: No - ENDOCRINE/METABOLIC Hx Endocrine Disorders: No - HEMATOLOGICAL/ONCOLOGICAL Hx Blood Disorders: No - INTEGUMENTARY Hx Dermatological Problems: No - MUSCULOSKELETAL/RHEUMATOLOGICAL Hx Musculoskeletal Disorders: No Hx Falls: No - GASTROINTESTINAL Hx Gastrointestinal Disorders: Yes Hx Gastroesophageal Reflux: Yes - GENITOURINARY/GYNECOLOGICAL Hx Genitourinary Disorders: No - PSYCHIATRIC Hx Psychophysiologic Disorder: No Hx Substance Use: No - SURGICAL HISTORY Hx Appendectomy: Yes Hx Cholecystectomy: Yes - ANESTHESIA Hx Anesthesia: Yes Hx Anesthesia Reactions: No Meds Allergies/Adverse Reactions: Allergies Allergy/AdvReac Type Severity Reaction Status Date / Time Penicillins Allergy RASH Verified 08/01/17 12:24 Physical Exam - Constitutional Appears: Well, Non-toxic, No Acute Distress - Head Exam Head Exam: ATRAUMATIC, NORMAL INSPECTION, NORMOCEPHALIC - Eye Exam Eye Exam: EOMI, Normal appearance, PERRL Pupil Exam: NORMAL ACCOMODATION, PERRL - ENT Exam ENT Exam: Mucous Membranes Moist, Normal Exam - Neck Exam Neck exam: Positive for: Normal Inspection - Respiratory Exam Respiratory Exam: Clear to Auscultation Bilateral, NORMAL BREATHING PATTERN - Cardiovascular Exam Cardiovascular Exam: Irregular Rhythm, +S1, +S2 - GI/Abdominal Exam GI & Abdominal Exam: Normal Bowel Sounds, Soft. absent: Tenderness - Extremities Exam Extremities exam: Positive for: full ROM, normal capillary refill, normal inspe ction, pedal pulses present - Back Exam Back exam: NORMAL INSPECTION - Neurological Exam Neurological exam: Alert, CN II-XII Intact, Normal Gait, Oriented x3, Reflexes Normal - Psychiatric Exam Psychiatric exam: Normal Affect, Normal Mood - Skin Skin Exam: Dry, Intact, Normal Color, Warm Results - Vital Signs Recent Vital Signs: Last Vital Signs Temp 97.5 F L 10/08/18 08:13 Pulse 88 10/08/18 08:13 Resp 20 10/08/18 08:13 BP 120/73 10/08/18 08:13 Pulse Ox 94 L 10/08/18 08:13 - Labs Result Diagrams: 10/08/18 05:45 10/08/18 05:45 Labs: Laboratory Results - last 24 hr 10/07/18 10/07/18 10/07/18 09:05 09:05 09:05 WBC 20.5 H D RBC 4.76 Hgb 15.3 Hct 45.8 MCV 96.0 H D MCH 32.2 H MCHC 33.5 RDW 13.6 Plt Count 233 D MPV 8.4 Neut % (Auto) 87.5 H Lymph % (Auto) 5.2 L [place] % (Auto) 7.1 Eos % (Auto) 0.0 Baso % (Auto) 0.2 Neut # (Auto) 17.9 H Lymph # (Auto) 1.1 [place] # (Auto) 1.5 H Eos # (Auto) 0.0 Baso # (Auto) 0.0 Neutrophils % (Manual) 86 H Band Neutrophils % 2 Lymphocytes % (Manual) 5 L Reactive Lymphs % 2 H Monocytes % (Manual) 5 Platelet Estimate Normal Large Platelets Present Giant Platelets Present RBC Morphology Normal PT 26.7 H INR 2.3 APTT 46.1 H pO2 VBG pH VBG pCO2 VBG HCO3 VBG Total CO2 VBG O2 Sat (Calc) VBG Base Excess VBG Potassium Glucose Lactate FiO2 Sodium 137 Potassium 3.4 L Chloride 95 L Carbon Dioxide 24 Anion Gap 21 H BUN 54 H Creatinine 1.4 Est GFR ( Amer) 60 Est GFR (Non-Af Amer) 49 Random Glucose 98 Calcium 9.3 Total Bilirubin 1.4 H AST 35 ALT 30 Alkaline Phosphatase 57 Total Protein 8.2 Albumin 4.5 Globulin 3.7 Albumin/Globulin Ratio 1.2 Lipase 48 Venous Blood Potassium Urine Color Urine Clarity Urine pH Ur Specific Lexa Urine Protein Urine Glucose (UA) Urine Ketones Urine Blood Urine Nitrate Urine Bilirubin Urine Urobilinogen Ur Leukocyte Esterase Urine RBC (Auto) Urine Microscopic WBC Urine Bacteria Blood Type Antibody Screen BBK History Checked 10/07/18 10/07/18 10/07/18 09:05 13:20 13:37 WBC RBC Hgb Hct MCV MCH MCHC RDW Plt Count MPV Neut % (Auto) Lymph % (Auto) [place] % (Auto) Eos % (Auto) Baso % (Auto) Neut # (Auto) Lymph # (Auto) [place] # (Auto) Eos # (Auto) Baso # (Auto) Neutrophils % (Manual) Band Neutrophils % Lymphocytes % (Manual) Reactive Lymphs % Monocytes % (Manual) Platelet Estimate Large Platelets Giant Platelets RBC Morphology PT INR APTT pO2 28 L VBG pH 7.38 VBG pCO2 38 L VBG HCO3 21.8 VBG Total CO2 23.7 VBG O2 Sat (Calc) 56.2 VBG Base Excess -2.3 L VBG Potassium 3.6 Glucose 108 Lactate 1.4 FiO2 21.0 Sodium 132.0 Potassium Chloride 103.0 Carbon Dioxide Anion Gap BUN Creatinine Est GFR ( Amer) Est GFR (Non-Af Amer) Random Glucose Calcium Total Bilirubin AST ALT Alkaline Phosphatase Total Protein Albumin Globulin Albumin/Globulin Ratio Lipase Venous Blood Potassium 3.6 Urine Color Yellow Urine Clarity Clear Urine pH 6.0 Ur Specific Lexa 1.019 Urine Protein Negative Urine Glucose (UA) Neg Urine Ketones Negative Urine Blood Small Urine Nitrate Negative Urine Bilirubin Negative Urine Urobilinogen 0.2-1.0 Ur Leukocyte Esterase Neg Urine RBC (Auto) 1 Urine Microscopic WBC < 1 Urine Bacteria Rare Blood Type AB POSITIVE Antibody Screen Negative BBK History Checked No verified bt 10/08/18 10/08/18 05:45 05:45 WBC 14.7 H RBC 4.22 L Hgb 13.8 Hct 40.5 MCV 96.0 H MCH 32.7 H MCHC 34.1 RDW 13.7 Plt Count 216 MPV 8.4 Neut % (Auto) 78.9 H Lymph % (Auto) 11.9 L Cabell % (Auto) 8.9 Eos % (Auto) 0.0 Baso % (Auto) 0.3 Neut # (Auto) 11.6 H Lymph # (Auto) 1.7 Cabell # (Auto) 1.3 H Eos # (Auto) 0.0 Baso # (Auto) 0.0 Neutrophils % (Manual) Band Neutrophils % Lymphocytes % (Manual) Reactive Lymphs % Monocytes % (Manual) Platelet Estimate Large Platelets Giant Platelets RBC Morphology PT INR APTT pO2 VBG pH VBG pCO2 VBG HCO3 VBG Total CO2 VBG O2 Sat (Calc) VBG Base Excess VBG Potassium Glucose Lactate FiO2 Sodium 137 Potassium 3.9 Chloride 103 Carbon Dioxide 23 Anion Gap 15 BUN 31 H Creatinine 1.0 Est GFR ( Amer) > 60 Est GFR (Non-Af Amer) > 60 Random Glucose 97 Calcium 8.7 Total Bilirubin 1.5 H AST 33 ALT 34 Alkaline Phosphatase 49 Total Protein 6.8 Albumin 3.8 Globulin 3.0 Albumin/Globulin Ratio 1.3 Lipase Venous Blood Potassium Urine Color Urine Clarity Urine pH Ur Specific Lexa Urine Protein Urine Glucose (UA) Urine Ketones Urine Blood Urine Nitrate Urine Bilirubin Urine Urobilinogen Ur Leukocyte Esterase Urine RBC (Auto) Urine Microscopic WBC Urine Bacteria Blood Type Antibody Screen BBK History Checked Assessment & Plan (1) LGI bleed Assessment and Plan: gi ppx, gi cont carelto for chornic afiba s per gi Status: Acute (2) Pneumonia Assessment and Plan: levaqin no resp s/s at present, will monitor Status: Acute (3) Sepsis Assessment and Plan: f/u bw and vs cont anbx Status: Acute (4) Afib Assessment and Plan: xarelto when cleared by gi Status: Acute (5) DVT prophylaxis Assessment and Plan: scd and ae hose xarelto ambuation Status: Acute Decision To Admit - Pt Status Changed To: Hospital Disposition Of: Inpatient - Admit Certification Admit to Inpatient:: After my assessment, the patient will require hospitalization for at least two midnights. This is because of the severity of symptoms shown, intensity of services needed, and/or the medical risk in this patient being treated as an outpatient. - . Bed Request Type: Telemetry Admitting Physician: Dennis Prado
[2018-10-08 21:25] LABS: INR 1.3; PROTHROMBIN TIME 14.6 Seconds (9.8-13.1)
[2018-10-08] MEDS: Pantoprazole 20 mg EC Tab PO SCH (21:34)
[2018-10-09 05:27] LABS: BASO % 0.2 % (0.0-2.0); HEMOGLOBIN 12.9 g/dL (12.0-18.0); LYMPH # 1.6 K/uL (1.0-4.3); LYMPH % 16.3 % (20.0-40.0); MEAN CELL VOLUME 95.1 fl (80.0-94.0); MEAN CORPUSCULAR HEMOGLOBIN 32.4 pg (27.0-31.0); MEAN CORPUSCULAR HGB CONC 34.1 g/dL (33.0-37.0); MEAN PLATELET VOLUME 8.2 fl (7.2-11.7); MONO # 1.1 K/uL (0.0-0.8); MONO % 10.6 % (0.0-10.0); NEUT # 7.3 K/uL (1.8-7.0); NEUT % 72.9 % (50.0-75.0); RBC 3.96 Mil/uL (4.40-5.90); RED CELL DISTRIBUTION WIDTH 13.5 % (11.5-14.5); WHITE BLOOD COUNT 10.1 K/uL (4.8-10.8)
[2018-10-09 06:19] LABS: ALB/GLOB RATIO 1.1 (1.0-2.1); ALBUMIN 3.4 g/dL (3.5-5.0); ALT/SGPT 43 U/L (21-72); AST/SGOT 36 U/L (17-59); BLOOD UREA NITROGEN 18 mg/dl (9-20); CALCIUM 8.3 mg/dL (8.4-10.2); GFR NON-AFRICAN AMERICAN > 60
[2018-10-09] MEDS ORDERED: Potassium Chloride 20 mEq ER Tab PO ONE (07:43)
[2018-10-09 08:13] VITALS: RESP 18
[2018-10-09] MEDS: levoFLOXacin 500 mg in D5W 500 MG/100 ML BAG IVPB SCH (08:44)
--- NOTE | 2018-10-09 09:56 | CP.PCM.PN ---
Subjective - Date & Time of Evaluation Date of Evaluation: 10/08/18 Time of Evaluation: 17:30 - Subjective Subjective: no overnight events Objective - Vital Signs/Intake and Output Vital Signs (last 24 hours): Temp Pulse Resp BP Pulse Ox 97.8 F 89 18 111/68 95 10/09/18 08:13 10/09/18 08:13 10/09/18 08:13 10/09/18 08:13 10/09/18 08:13 - Medications Medications: Current Medications Acetaminophen (Tylenol 325mg Tab) 650 mg PO Q4 PRN PRN Reason: Fever >100.4 F Famotidine (Pepcid) 20 mg IVP Q12 JESSICA Last Admin: 10/08/18 21:33 Dose: 20 mg Levofloxacin/Dextrose (Levaquin 500mg) 500 mg in 100 mls @ 100 mls/hr IVPB D AILY JESSICA; Protocol Last Admin: 10/09/18 08:44 Dose: 100 mls/hr Ondansetron HCl (Zofran Inj) 4 mg IVP Q6 PRN PRN Reason: Nausea/Vomiting Pantoprazole Sodium (Protonix Ec Tab) 20 mg PO HS JESSICA Last Admin: 10/08/18 21:34 Dose: 20 mg Rivaroxaban (Xarelto) 20 mg PO HS JESSICA; Protocol Last Admin: 10/08/18 21:33 Dose: 20 mg - Labs Labs: 10/09/18 05:00 10/09/18 05:00 PT 14.6 Seconds (9.8-13.1) H D 10/08/18 21:00 INR 1.3 10/08/18 21:00 APTT 46.1 Seconds (25.6-37.1) H 10/07/18 09:05 - Neck Exam Neck Exam: Normal Inspection - Respiratory Exam Respiratory Exam: Clear to Ausculation Bilateral, NORMAL BREATHING PATTERN - Cardiovascular Exam Cardiovascular Exam: REGULAR RHYTHM - GI/Abdominal Exam GI & Abdominal Exam: Soft, Normal Bowel Sounds Assessment and Plan - Assessment and Plan (Free Text) Assessment: 77 yo male with gastroenteritis hgb appropriate dc planning once able
[2018-10-09 12:07] VITALS: BP 126/74; PULSE 86; TEMP 97.4; O2SAT 96
--- NOTE | 2018-10-09 20:19 | CP.PCM.DIS ---
Provider - Provider Date of Admission: 10/07/18 12:48 Attending physician: Dennis Prado MD Primary care physician: Yanick Owen Consults: 10/07/18 16:18 Gastroenterology Consult Routine Comment: Consulting Provider: Jeffrey Starks Consulting Physician: Jeffrey Starks Reason for Consult: melena, hematemesis Time Spent in preparation of Discharge (in minutes): 15 Diagnosis - Discharge Diagnosis (1) LGI bleed Status: Acute (2) Pneumonia Status: Acute (3) Sepsis Status: Acute (4) Afib Status: Acute (5) DVT prophylaxis Status: Acute Hospital Course - Lab Results Lab Results: Micro Results 10/09/18 02:00 Stool Ova and Parasite Concentrate Exam - Final 10/07/18 13:45 Blood Blood Culture - Preliminary NO GROWTH AFTER 48 HOURS 10/07/18 13:25 Blood Blood Culture - Preliminary NO GROWTH AFTER 48 HOURS Most Recent Lab Values WBC 10.1 K/uL (4.8-10.8) 10/09/18 05:00 RBC 3.96 Mil/uL (4.40-5.90) L 10/09/18 05:00 Hgb 12.9 g/dL (12.0-18.0) 10/09/18 05:00 Hct 37.7 % (35.0-51.0) 10/09/18 05:00 MCV 95.1 fl (80.0-94.0) H 10/09/18 05:00 MCH 32.4 pg (27.0-31.0) H 10/09/18 05:00 MCHC 34.1 g/dL (33.0-37.0) 10/09/18 05:00 RDW 13.5 % (11.5-14.5) 10/09/18 05:00 Plt Count 173 K/uL (130-400) 10/09/18 05:00 MPV 8.2 fl (7.2-11.7) 10/09/18 05:00 Neut % (Auto) 72.9 % (50.0-75.0) 10/09/18 05:00 Lymph % (Auto) 16.3 % (20.0-40.0) L 10/09/18 05:00 [facility] % (Auto) 10.6 % (0.0-10.0) H 10/09/18 05:00 Eos % (Auto) 0.0 % (0.0-4.0) 10/09/18 05:00 Baso % (Auto) 0.2 % (0.0-2.0) 10/09/18 05:00 Neut # (Auto) 7.3 K/uL (1.8-7.0) H 10/09/18 05:00 Lymph # (Auto) 1.6 K/uL (1.0-4.3) 10/09/18 05:00 [facility] # (Auto) 1.1 K/uL (0.0-0.8) H 10/09/18 05:00 Eos # (Auto) 0.0 K/uL (0.0-0.7) 10/09/18 05:00 Baso # (Auto) 0.0 K/uL (0.0-0.2) 10/09/18 05:00 Neutrophils % (Manual) 86 % (42-75) H 10/07/18 09:05 Band Neutrophils % 2 % (0-2) 10/07/18 09:05 Lymphocytes % (Manual) 5 % (20-50) L 10/07/18 09:05 Reactive Lymphs % 2 % (0-0) H 10/07/18 09:05 Monocytes % (Manual) 5 % (0-10) 10/07/18 09:05 Platelet Estimate Normal (NORMAL) 10/07/18 09:05 Large Platelets Present 10/07/18 09:05 Giant Platelets Present 10/07/18 09:05 RBC Morphology Normal (NORMAL) 10/07/18 09:05 PT 14.6 Seconds (9.8-13.1) H D 10/08/18 21:00 INR 1.3 10/08/18 21:00 APTT 46.1 Seconds (25.6-37.1) H 10/07/18 09:05 pO2 28 mm/Hg (30-55) L 10/07/18 13:37 VBG pH 7.38 (7.32-7.43) 10/07/18 13:37 VBG pCO2 38 mmHg (40-60) L 10/07/18 13:37 VBG HCO3 21.8 mmol/L 10/07/18 13:37 VBG Total CO2 23.7 mmol/L (22-28) 10/07/18 13:37 VBG O2 Sat (Calc) 56.2 % (40-65) 10/07/18 13:37 VBG Base Excess -2.3 mmol/L (0.0-2.0) L 10/07/18 13:37 VBG Potassium 3.6 mmol/L (3.6-5.2) 10/07/18 13:37 Sodium 132.0 mmol/L (132-148) 10/07/18 13:37 Chloride 103.0 mmol/L (98-107) 10/07/18 13:37 Glucose 108 mg/dL (75-110) 10/07/18 13:37 Lactate 1.4 mmol/L (0.7-2.1) 10/07/18 13:37 FiO2 21.0 % 10/07/18 13:37 Sodium 135 mmol/l (132-148) 10/09/18 05:00 Potassium 3.3 MMOL/L (3.6-5.0) L 10/09/18 05:00 Chloride 100 mmol/L (98-107) 10/09/18 05:00 Carbon Dioxide 26 mmol/L (22-30) 10/09/18 05:00 Anion Gap 12 (10-20) 10/09/18 05:00 BUN 18 mg/dl (9-20) 10/09/18 05:00 Creatinine 0.9 mg/dl (0.8-1.5) 10/09/18 05:00 Est GFR ( Amer) > 60 10/09/18 05:00 Est GFR (Non-Af Amer) > 60 10/09/18 05:00 Random Glucose 85 mg/dL (75-110) 10/09/18 05:00 Calcium 8.3 mg/dL (8.4-10.2) L 10/09/18 05:00 Phosphorus 2.6 mg/dl (2.5-4.5) 10/09/18 05:00 Magnesium 1.7 MG/DL (1.6-2.3) 10/09/18 05:00 Total Bilirubin 1.3 mg/dl (0.2-1.3) 10/09/18 05:00 AST 36 U/L (17-59) 10/09/18 05:00 ALT 43 U/L (21-72) 10/09/18 05:00 Alkaline Phosphatase 48 U/L (38-126) 10/09/18 05:00 Total Protein 6.3 G/DL (6.3-8.2) 10/09/18 05:00 Albumin 3.4 g/dL (3.5-5.0) L 10/09/18 05:00 Globulin 2.9 gm/dL (2.2-3.9) 10/09/18 05:00 Albumin/Globulin Ratio 1.1 (1.0-2.1) 10/09/18 05:00 Lipase 48 U/L (23-300) 10/07/18 09:05 Venous Blood Potassium 3.6 mmol/L (3.6-5.2) 10/07/18 13:37 Urine Color Yellow (YELLOW) 10/07/18 13:20 Urine Clarity Clear (Clear) 10/07/18 13:20 Urine pH 6.0 (5.0-8.0) 10/07/18 13:20 Ur Specific [place] 1.019 (1.003-1.030) 10/07/18 13:20 Urine Protein Negative mg/dL (NEGATIVE) 10/07/18 13:20 Urine Glucose (UA) Neg mg/dL (NEGATIVE) 10/07/18 13:20 Urine Ketones Negative mg/dL (NEGATIVE) 10/07/18 13:20 Urine Blood Small (NEGATIVE) 10/07/18 13:20 Urine Nitrate Negative (NEGATIVE) 10/07/18 13:20 Urine Bilirubin Negative (NEGATIVE) 10/07/18 13:20 Urine Urobilinogen 0.2-1.0 mg/dL (0.2-1.0) 10/07/18 13:20 Ur Leukocyte Esterase Neg [place]/uL (Negative) 10/07/18 13:20 Urine RBC (Auto) 1 /hpf (0-3) 10/07/18 13:20 Urine Microscopic WBC < 1 /hpf (0-5) 10/07/18 13:20 Urine Bacteria Rare (<OCC) 10/07/18 13:20 Blood Type AB POSITIVE 10/07/18 09:05 Blood Type Confirm AB POSITIVE 10/08/18 09:05 Antibody Screen Negative 10/07/18 09:05 BBK History Checked No verified bt 10/07/18 09:05 - Hospital Course Hospital Course: pt admitted for lgib and pna. is doing well, hgb stable. no further bloody bm. wbc normalized. no cough/fever. cleared by gi for dc Discharge Exam - Head Exam Head Exam: ATRAUMATIC, NORMAL INSPECTION, NORMOCEPHALIC - Eye Exam Eye Exam: EOMI, Normal appearance, PERRL Pupil Exam: NORMAL ACCOMODATION, PERRL - Respiratory Exam Respiratory Exam: Clear to PA & Lateral, NORMAL BREATHING PATTERN, UNREMARKABLE - Cardiovascular Exam Cardiovascular Exam: REGULAR RHYTHM, RRR, +S1, +S2 - GI/Abdominal Exam GI & Abdominal Exam: Normal Bowel Sounds - Rectal Exam Rectal Exam: Black Stool - Extremities Exam Extremities exam: full ROM, normal capillary refill, normal inspection, pedal pulses present - Neurological Exam Neurological exam: Alert, CN II-XII Intact, Normal Gait, Oriented x3, Reflexes Normal - Psychiatric Exam Psychiatric exam: Normal Affect, Normal Mood - Skin Skin Exam: Dry, Intact, Normal Color, Warm Discharge Plan - Discharge Medications Prescriptions: Levofloxacin [Levaquin] 500 mg PO DAILY #5 tablet - Follow Up Plan Condition: STABLE Disposition: HOME/ ROUTINE Instructions: Community-Acquired Pneumonia, Adult (DC), Gastroenteritis (DC) Additional Instructions: follow up with your primary MD and GI doctor in 1 week final dx- pna, lgib cont xarelto, f/u cardio for titration of xarelto outpt gi-egd/colonocopy outpt f/u pmd-pna doing wel. no distress. no f/c, n/v/d. pt anxious to go home Referrals: Jeffrey Starks MD, PhD [Staff Provider] - Yanick Owen MD [Primary Care Provider] -
--- NOTE | 2018-10-09 21:00 | CON ---
DATE: 10/07/2018 REFERRING DOCTOR: Sriram Agosto DPM REASON FOR CONSULTATION: Diarrhea. HISTORY OF PRESENT ILLNESS: This is a pleasant 77-year-old man who comes in for pneumonia. He had a bout of gastroenteritis at home after eating a tuna sandwich. He had some diarrhea as well. The patient has no pain. No nausea. No vomiting. Some discomfort in the lower abdomen with cramping. Lying in bed comfortably, in no apparent distress. PAST MEDICAL HISTORY: As above. PAST SURGICAL HISTORY: As above. MEDICATIONS: Have been reviewed. REVIEW OF SYSTEMS: All other systems have been reviewed and negative apart from the HPI. PHYSICAL EXAMINATION: VITAL SIGNS: Here in the hospital grossly unremarkable. GENERAL: A pleasant elderly appearing male, lying in bed comfortably, in no apparent distress. HEENT: Head: Normocephalic and atraumatic. Eyes: Pupils are equally reactive to light bilaterally. No conjunctival pallor or icterus. NECK: Supple. Normal range of motion. No lymphadenopathy appreciated. LUNGS: Coarse breath sounds bilaterally. HEART: S1 and S2. Regular rate and rhythm. ABDOMEN: Soft and nontender. Bowel sounds present. No rebound. No guarding. RECTAL: Deferred. EXTREMITIES: Pulses present bilaterally. SKIN: Warm, dry, and intact. NEUROLOGIC: A and O x 3. LABORATORY DATA: Labs and radiology have been reviewed. WBC is 5, hemoglobin is 15.3, hematocrit 45.8, platelet count is 233. INR is 2.3. BUN 54, creatinine 1.4. 1.4. ASSESSMENT AND PLAN: This is a 77-year-old man with gastroenteritis and pneumonia. From gastrointestinal standpoint, CAT scan is pending, stool studies are pending as well. Antibiotics for now. Advance diet as tolerated. We will follow the patient with you. Thank you for the consult. Jeffrey Starks MD/ PhD cc: Sriram Agosto DPM
== END 2018-10-09 14:45 | disposition home health service (06) | DRG 871 ==
LOC: H.ER 08:24 → SUPCPDRO 08:24 → H.ERHOLD 12:48 → H.TEL 14:39
PROVIDERS: ADMIT Family Medicine; ATTEND Family Medicine
DX: A41.9 Sepsis, unspecified organism (principal); J18.9 Pneumonia, unspecified organism; K52.9 Noninfective gastroenteritis and colitis, unspecified; Z79.01 Long term (current) use of anticoagulants; K44.9 Diaphragmatic hernia without obstruction or gangrene; F17.200 Nicotine dependence, unspecified, uncomplicated; I48.91 Unspecified atrial fibrillation; K21.9 Gastro-esophageal reflux disease without esophagitis; K40.90 Unilateral inguinal hernia, without obstruction or gangrene, not specified as recurrent; K57.90 Diverticulosis of intestine, part unspecified, without perforation or abscess without bleeding

== ENCOUNTER 2018-10-16 11:01 | Day surgery (SDC) | payer MEDICARE, OTHER ==
[2018-10-16] MEDS ORDERED: Lactated Ringer's 500 ML IV ONE (11:21)
[2018-10-16 11:23] VITALS: BMI 26.5
[2018-10-16] MEDS ORDERED: Propofol 10 mg/ml Inj (20 ML) ONE (12:01)
[2018-10-16 12:48] VITALS: BP 121/65; PULSE 76; RESP 18; TEMP 98.1; O2SAT 100
== END 2018-10-16 12:59 | disposition home or self-care (01) ==
LOC: H.ENDO 11:01
PROVIDERS: ATTEND Internal Medicine Gastroenterology
DX: R12 Heartburn (principal); K29.70 Gastritis, unspecified, without bleeding; K44.9 Diaphragmatic hernia without obstruction or gangrene; K22.8 Other specified diseases of esophagus
CPT/HCPCS: 43239; 88305; J2001; J2704; J7120